=== PATIENT | male | born 1960 | race Caucasian/White ===

== ENCOUNTER 2019-04-15 08:03 | Day surgery (SDC) | payer OTHER ==
--- NOTE | 2019-04-15 09:45 | NUR ---
DISCHARGE INSTRUCTIONS GIVEN. PT VERBALIZES UNDERSTANDING. DISCHARGED TO HOME, AMBULATORY WITH BELONGINGS AND DISCHARGE INSTRUCTIONS ON HAND.
== END 2019-04-15 23:11 | disposition home or self-care (01) ==
LOC: CT 08:03 → ORD 08:30 → CT 23:11
DX: I25.10 Atherosclerotic heart disease of native coronary artery without angina pectoris (principal); R00.1 Bradycardia, unspecified; Z88.2 Allergy status to sulfonamides
CPT/HCPCS: 75574; Q9967

== ENCOUNTER → 2019-11-12 | Outpatient (CLI) | payer OTHER ==
[~2019-11-12] MED LIST: ASPIR 8181 M1 PO
[2019-11-12 15:44] LABS: U Amphetamine Screen Not Detected; U Barbituate Screen Not Detected; U Benzodiazapine Screen Not Detected; U Buprenorphine Screen Not Detected; U Cannabinoids Screen Not Detected; U Cocaine Screen Not Detected; U Methadone Screen Not Detected; U Methamphetamine Screen Not Detected; U Opiates Screen Not Detected; U Oxycodone Screen Not Detected; U Phencyclidine Screen Not Detected; U Propoxyphene Screen Not Detected
== END | disposition home or self-care (01) ==
LOC: LAB 12:30 → LAB SHORT 12:30
PROVIDERS: Internal Medicine Critical Care Medicine
DX: R40.0 Somnolence (principal)

== ENCOUNTER 2019-11-18 06:36 | Day surgery (SDC) | payer OTHER ==
[~2019-11-18] VITALS: Ht 172.7 cm; Wt 81.3 kg
[2019-11-18] MEDS ORDERED: ASPIR 8181 M1 PO (07:03)
--- NOTE | 2019-11-18 19:55 | NUR ---
SHIFT SUMMARY: PT RECEIVED FROM [facility] VIA STRETCHER POST PACEMAKER PLACEMENT @1030. PT VITALS HAS BEEN STABLE UPON ARRIVAL TIL THE END OF THE SHIFT, HRR PACED 100% ON 60-65. PT STILL C/O SOB OCCASIONALLY NORCO OFFERED SINCE PT IS ALSO C/O PAIN IN THE SURGICAL SITE, PAIN MEDICATION SEEMED TO HELP WAS GIVEN TWICE FOR THE SHIFT. PT HAS BEEN AMBULATING IN THE UNIT, SLING-ON LEFT ARM FOR RESTRICTIONS, PT EDUCATED WELL. PACEMAKER SITE DRESSING INTACT NO REDNESS NOTED AROUND THE SITE. PT PLAN TO DISCHAGRE TOMORROW. WILL CONTINUE TO MONITOR REPORT GIVEN TO ONCOMING SHIFT.
--- NOTE | 2019-11-19 06:02 | NUR ---
SHIFT SUMMARY PT A&O; PLEASANT & COMPLIANT W/CARE; INDEPENDENT IN ROOM; PT C/O SOB AND INSOMNIA; PT STATES THIS IS A CHRONIC ISSUE HE HAD HOPES PACER WOULD HELP; PACER TO L CW; SMALL AMOUNT OF DRY BLOOD NOTED; NO ACUTE CHANGES THIS SHIFT; VSS; 100% PACED NOTED ON TELE; SLING IN PLACE; PT EDUCATED ON NEED TO NOT RAISE OR EXTEND ARM; PT VERBALIZED UNDERSTANDING; NORCO GIVEN 1X THIS SHIFT FOR PAIN AT OP SITE; CHARGING CORD BROUGHT TO PT TO CHARGE HIS CELL PHONE; SPOKE W/ SPOUSE AT 0445 AND TRANSFERED TO PT ROOM; PO SNACKS AND FLUIDS BROUGHT TO PT; CALL LIGHT IN REACH; BED IN LOWEST POSITION; WILL CONTINUE TO MONITOR CLOSELY UNTIL HAND OFF TO DAY SHIFT RN.
--- NOTE | 2019-11-19 06:16 | NUR ---
UPDATE PT EXPRESSES CONCERN W/ PACER; STATES HE FEELS IT IS "SET TOO HIGH"; EDUCATION PROVIDED; PT DESIRES TO BE SPEAK W/ SPINE SPECIALIST AND BE DISCHARGED; EXPRESS DISATISFACTION; PT ENCOURAGED AND EDUCATED; WILL CONTINUE TO MONITOR
--- NOTE | 2019-11-19 07:48 | NUR ---
AM NOTE... ASSUMED CARE OF PT APROX 0700. PT IS A&Ox4 AND IND IN THE ROOM. PT IS S/P PACER PLACEMENT, PT IS 100% PACED IN THE 60'S. PT C/O OF "POUNDING IN HIS HEAD AND FEELING LIKE HIS HEART WAS RACING ALL NIGHT." PROVIDER IS AWARE OF THIS, PT'S NIGHT TIME RATE WAS CHANGED FROM 60BPM TO 50BPM. PT WAS VERY UPSET THAT HE DID NOT SLEEP VERY WELL TONIGHT, PT WAS UNDER THE ASSUMPTION THAT GETTING A PACEMAKER WOULD HELP HIS INSOMNIA. PER PT'S RECORDS THE PT HAS ZACHARY BUT REFUSES CPAP AT THIS TIME. PT'S VS STABLE ON ASSESSMENT. PACER SITE IS C/D/I, DRESSING WAS CHANGED BY PROVIDER AT THE BEDSIDE THIS AM. PT STATED HIS UNDERSTANDING ONF DISCHARGE INSTRUCTIONS. CALL LIGHT IN REACH WILL CONTINUE TO MONITOR.
== END 2019-11-19 09:49 | disposition home or self-care (01) ==
LOC: MHTC 06:36 → PCU 09:54 → MHTC 11-19 09:49
DX: I49.5 Sick sinus syndrome (principal); I47.1 Supraventricular tachycardia; R55 Syncope and collapse; I10 Essential (primary) hypertension; E78.5 Hyperlipidemia, unspecified; I25.10 Atherosclerotic heart disease of native coronary artery without angina pectoris; Z88.2 Allergy status to sulfonamides; E78.00 Pure hypercholesterolemia, unspecified
CPT/HCPCS: 33208; 71045; 71046; 93005; 93010; 93308; 99152; 99153; A9270-GY; C1785; C1894; C1898; J0690; J1644; J2250; J3010; J7030; J7040

== ENCOUNTER 2023-08-19 10:19 | Emergency (ER) | payer OTHER ==
[~2023-08-19] VITALS: Ht 177.8 cm; Wt 83.9 kg
[2023-08-19 10:46] VITALS: BP 150/97
== END 2023-08-19 12:16 | disposition home or self-care (01) ==
LOC: ER 10:19
DX: D18.09 Hemangioma of other sites (principal)
CPT/HCPCS: 99283